=== PATIENT | female | born 1975 | race Caucasian/White ===

== ENCOUNTER 2019-11-29 08:31 | Outpatient (CLI) | payer OTHER, SELFPAY ==
--- NOTE | ~2019-11-29 | MM_ITS ---
EXAMINATION: MM screening angela BI w ro HISTORY: Screening mammogram TECHNIQUE: Craniocaudal and mediolateral oblique 3-D tomosynthesis images were obtained and synthetic 2-D images were generated. CAD analysis was submitted and interpreted. COMPARISON: No prior mammogram is available for comparison at this institution. BREAST PARENCHYMAL COMPOSITION: There are scattered areas of fibroglandular density. FINDINGS: There is no evidence of suspicious mass, calcification, or architectural distortion to sugg est malignancy in either breast. IMPRESSION: 1. No mammographic evidence of malignancy. 2. Recommend routine screening mammography in one year. BI-RADS Category 1: Negative Reviewed, dictated and finalized at location A.
== END 2019-11-29 08:32 | disposition home or self-care (01) ==
LOC: ANHIMG 08:33
PROVIDERS: PCP Internal Medicine; Visit Provider Internal Medicine
DX: Z12.31 Encounter for screening mammogram for malignant neoplasm of breast (principal)
CPT/HCPCS: 77063; 77067

== ENCOUNTER 2020-08-22 08:23 | Outpatient (CLI) | payer OTHER, SELFPAY ==
--- NOTE | ~2020-08-22 | MR_ITS ---
EXAMINATION: MR cervical spine wo con DATE: 08/22/2020 09:52 INDICATION: Cervical radiculopathy. TECHNIQUE: Magnetic resonance imaging (MRI) of the cervical spine was performed without intravenous c ontrast. Sequences included sagittal T2-weighted FSE, sagittal STIR FSE, sagittal T1-weighted FSE, ax ial MERGE, and axial T2-weighted FSE. COMPARISON: CT cervical spine 03/15/2004 FINDINGS: There is kyphosis of cervical spine. Vertebral body heights are normal. There is mildly dec reased disc height at C5-C6 and C6-C7. The spinal cord signal intensity is normal. The following disc levels are specifically discussed: C2-C3: The disc does not extend beyond the endplate margin. There is no uncovertebral joint osteoarth ritis. There is mild bilateral facet joint osteoarthritis. There is no neural foraminal stenosis. The re is no central canal stenosis. C3-C4: The disc does not extend beyond the endplate margin. There is mild bilateral uncovertebral tere nt osteoarthritis. There is mild bilateral facet joint osteoarthritis. There is no neural foraminal s tenosis. There is no central canal stenosis. C4-C5: The disc does not extend beyond the endplate margin. There is no uncovertebral joint osteoarth ritis. There is no facet joint osteoarthritis. There is no neural foraminal stenosis. There is no charo tral canal stenosis. C5-C6: The disc is bulging. There is mild left uncovertebral joint osteoarthritis. There is mild left facet joint osteoarthritis. There is no neural foraminal stenosis. There is no central canal stenosi s. C6-C7: The disc is bulging with superimposed central extrusion. There is mild bilateral uncovertebral joint osteoarthritis. There is no facet joint osteoarthritis. There is mild right neural foraminal s tenosis. There is mild central canal stenosis. C7-T1: The disc does not extend beyond the endplate margin. There is no uncovertebral joint osteoarth ritis. There is mild bilateral facet joint osteoarthritis. There is no neural foraminal stenosis. The re is no central canal stenosis. IMPRESSION: 1. Mild cervical spondylosis. Reviewed, dictated and finalized at location A. [employer]
== END 2020-08-22 08:24 | disposition home or self-care (01) ==
LOC: ANHIMG 08:37
PROVIDERS: PCP Internal Medicine; Visit Provider Internal Medicine
DX: M47.22 Other spondylosis with radiculopathy, cervical region (principal)
CPT/HCPCS: 72141

== ENCOUNTER → 2021-05-15 09:49 | Outpatient (CLI) | payer OTHER, SELFPAY ==
[2021-05-16 18:23] LABS: SARS-CoV-2 RNA PCR Negative
== END ==
PROVIDERS: PCP Internal Medicine; Visit Provider Internal Medicine
DX: J06.9 Acute upper respiratory infection, unspecified (principal); Z20.822 Contact with and (suspected) exposure to COVID-19
CPT/HCPCS: C9803; U0003; U0005

== ENCOUNTER → 2021-07-14 14:09 | Outpatient (CLI) | payer OTHER, SELFPAY ==
--- NOTE | ~2021-07-14 | MR_ITS ---
EXAMINATION: MR shoulder RT wo con DATE: 07/14/2021 14:46 INDICATION: Impingement syndrome of right shoulder. TECHNIQUE: Magnetic resonance imaging (MRI) of the right shoulder was performed without intravenous c ontrast. Sequences included axial PD-weighted FS FSE, coronal oblique PD-weighted FS FSE and T2-weigh dean FS FSE, and sagittal oblique T2-weighted FS FSE and T1-weighted FSE. COMPARISON: Right shoulder radiographs 04/09/2021 FINDINGS: Coracoacromial arch: The acromion undersurface is curved in morphology (type II). There is mild acromioclavicular joint os teoarthritis. There is a physiologic volume of fluid in subacromial/subdeltoid bursa. Rotator cuff: There is mild supraspinatus and infraspinatus tendinopathy. Teres minor tendon is normal. Subscapular is tendon is normal. There is no asymmetric fatty atrophy of the rotator cuff muscle bellies. Biceps tendon and glenoid labrum: Biceps tendon is in bicipital groove. Intra-articular biceps tendon is normal. The glenoid labrum is intact. Fluid: There is a small glenohumeral joint effusion. There is a 7 mm loose body in the subscapular recess. Bones/cartilage: The humeral head cartilage is normal. The glenoid cartilage is normal. There is a small subchondral c yst of the glenoid posteriorly. IMPRESSION: 1. Mild rotator cuff tendinopathy. No tear. 2. Small glenohumeral joint effusion with loose body. 3. Mild acromioclavicular joint osteoarthritis. Reviewed, dictated and finalized at location A.
== END ==
PROVIDERS: PCP Internal Medicine; Visit Provider Orthopaedic Surgery
DX: M19.011 Primary osteoarthritis, right shoulder (principal); M25.411 Effusion, right shoulder; M24.011 Loose body in right shoulder
CPT/HCPCS: 73221

== ENCOUNTER 2021-10-10 01:32 | Day surgery (SDC) | payer OTHER, SELFPAY ==
[2021-10-06 14:24] VITALS: BMI 43.2
--- NOTE | 2021-10-06 14:37 | PC.NURSE ---
Report to the Outpatient Waiting Room, entrance under the green pavilion located off [facility], at time 0600 on date 10/10/21. OR Time: 0730. - You will be asked a series of questions to screen for COVID 19 for your protection. - A mask is required within the hospital. - No visitors are allowed at this time. Preoperative COVID Testing Requirements: TO BRING COPY OF CARD No COVID Test needed if: (proof is required; if not received patient will have Rapid Test prior to entry) - Patient has received COVID Vaccine at least 14 days prior to procedure date or - Patient has positive COVID test result within last 90 days of surgery date. COVID Test needed if above criteria is not met Patients may have clear liquids (water, carbonated beverages, clear teas, apple juice) until 3 hours prior to surgery with a maximum of 20 ounces. - No food from midnight until time of surgery Take the following medications with a SIP of water the morning of surgery: TOPAMAX Medications to discontinue per physician: JORGE Date to take last dose: 7 DAYS PRIOR TO SURGERY (PER ) Please no make-up, nail urdu, hairspray, perfume, deodorant, or body powder the day of surgery. No jewelry (including any body piercings) or valuables the day of surgery, leave them at home. Please take a shower or bath the night before, or the morning of, surgery with an antibacterial soap. Wear comfortable, loose fitting clothing. - Jewelry must be removed prior to entering the operating room. Rings and piercings that are not removed may be cut off. - The hospital will not accept responsibility for valuables. - Please leave all valuables, including medications, at home the day of surgery. If you are going home after surgery, a licensed p d driver must drive you home. - NO public transportation without another adult. - We recommend that an adult stay with you for 24 hours following discharge. - We also recommend that you do not drive, make important decision, drink alcoholic beverages, or take any drugs that were not prescribed by your health care provider for at least 24 hours after your discharge time. Follow any additional instructions given to you from your surgeon. Telephone instructions given to ROMAIN BERUMEN and asked if any additional questions and then verbalized understanding. Patient advised to call surgeon office or pre surgery nurse liaison [phone] if any additional questions.
--- NOTE | 2021-10-09 12:39 | WPDANESEPPF ---
Anes - Initial Pre Proc Eval Procedure: Operation Date: 10/10/21 07:30 Proposed Procedures p Right Shoulder Arthroscopy, Subacromial Decompression, Possible Loose Body Removal - Hugo Espitia MD Date/Time: 10/09/21 12:39 Surgeon: Hugo Espitia MD Pre Op Diagnosis: tendonitis rt rot cuff, loose body Patient Data Age: 46 Gender: F Height: 1.65 m Weight: 117.93 kg Allergies Allergy/AdvReac Type Severity Reaction Status Date / Time codeine Allergy Mild Hives Verified 10/10/21 06:20 Sulfa (Sulfonamide Allergy Mild Hives Verified 10/10/21 06:20 Antibiotics) Penicillins Allergy Unknown Hives Verified 10/10/21 06:20 strawberry Allergy Unknown Hives Verified 10/10/21 06:20 sulfanilamide Allergy Unknown Hives Verified 10/10/21 06:20 Home Medications Medication Instructions Recorded Confirmed Type cholecalciferol (vitamin D3) 1,250 50,000 unit PO WEEKLY #10 cap 08/06/21 10/10/21 Rx mcg (50,000 unit) capsule topiramate 25 mg tablet 25 mg PO BID #180 tablet 08/06/21 10/10/21 Rx naproxen sodium [Aleve] 220 mg PO Q12H PRN 10/06/21 10/10/21 History Patient hx anesthesia problems: none Family hx anesthesia problems: none Results Review: All pre-operative results and documents have been reviewed as part of the pre-operative evaluation. [facility] Past Medical History Medical History Cervical radiculopathy Chronic migraine COVID-19 vaccine series completed Establishing care with new doctor, encounter for Exercise counseling Morbid obesity with BMI of 40.0-44.9, adult Muscle spasm Otitis media Routine adult health maintenance Screening mammogram, encounter for Vaccine counseling Weight loss advised Surgical History Surgical History History of carpal tunnel surgery (~2000) History of cholecystectomy (~2008) History of eye surgery (~1985) History of shoulder surgery (~2011) Left shoulder surgery Family History Family History Sibling Cerebrovascular accident Asthma Patient's brother is in good health Grandparent Cerebrovascular accident Family history of coronary artery disease Father Hypertension Cerebrovascular accident Mother Patient's mother is in good health Other Family history of elevated blood lipids Social History Social History Smoking status: Never smoker Second hand tobacco smoke exposure: No Alcohol intake: never Substance use: never Substance use type: does not use Living arrangements: with family Spiritual care concerns: No Anes - Eval Final PreProcedure Day of Procedure 10/09/21 12:39 Patient weight: morbidly obese Heart: regular rate and rhythm Lungs: clear to auscultation and normal air movement Airway: Mallampati scale class II Neurological: alert and oriented Last oral intake: >/= 8 hours ASA classification: III Emergent: no Anesthetic plan: proceed Anesthesia type and monitoring: general ETT Results Review: All pre-operative results and documents have been reviewed as part of the pre-operative evaluation. Informed Consent: The patient's anesthetic plan and its attendant risks and benefits were discussed with the patient/family/POA. Questions were solicited and answers provided to the satisfaction of the patient/family/POA.
--- NOTE | 2021-10-09 12:42 | WPDANESPNB ---
Anes - Peripheral Nerve Block Date/Time: 10/09/21 12:42 I have discussed with the patient/family/POA the placement of a peripheral nerve block for post-operative pain management, including associated risks, benefits, complications, and side effects. Alternative methods of post-operative analgesia were detailed. Questions were solicited and answers provided to the satisfaction of the patient/family/POA. Time-Out: A pre-procedural Time-Out was completed immediately before starting the procedure and confirmed: Patient Identification, Site, Procedure, Patient Position and the Availability of Requisite Equipment. Clinical Indications: Acute post-operative pain management requested by the operative surgeon. Nerve Block Insertion Note Anes-nerve block: supraclavicular right Patient position: supine Skin prep: chlorhexidine Needle: 22 gauge, stimulating, insulated echogenic needle. Needle length: 80 mm Technique: ultrasound (in plane) Injectate: bupivacaine 0.5% with epi 5 mcg/ml (20cc) Observations: tolerated well Complications: none Procedure start time:: 725 Procedure end time:: 730
[2021-10-10] VITALS (9 sets, daily range): BP systolic 100–130; BP diastolic 48–84; PULSE 51–84; RESP 16–20; TEMP 36.1–36.5; O2SAT 98–100; BMI 44.6
[2021-10-10] MEDS: LACTATED RINGERS 1,000 ML 30 ML IV CONT (07:13)
[2021-10-10] MEDS: KETOROLAC 15 MG/ML VIAL (*BKC) IV PUSH (07:13)
[2021-10-10] MEDS: ACETAMINOPHEN 500 MG TABLET 1000 MG PO (07:13)
--- NOTE | 2021-10-10 07:24 | WPDHPUPDATE1 ---
History and Physical Update Update Date/Time: 10/10/21 07:24 History and Physical has been reviewed, including an updated exam of the patient. There are NO changes in the patient's condition. Risks, benefits, and alternatives have been discussed and questions answered. Patient agrees to proceed with procedure.
[2021-10-10] MEDS: ceFAZolin 3 GM/D5W 100 ML 100 ML IVPB (07:43)
[2021-10-10] MEDS: ONDANSETRON INJ 4 MG/2 ML VIAL IV PUSH (09:27)
--- NOTE | 2021-10-10 10:09 | W.PM.PROC2 ---
Procedure Note - Detailed Date of Procedure 10/10/21 Pre-op Diagnosis tendonitis rt rot cuff, loose body Post-op Diagnosis other (1. Glenoid chondral defect 2. Partial thickness rotator cuff tear (articular) 3. Impingement syndrome) Procedure Performed 1. Glenoid microfracture (extensive debridement) 2. Rotator cuff articular tear debridement 3. Subacromial decompression Surgeon Hugo Espitia MD Post Manager Trisha West PA-C Anesthesia general Description of Procedure Patient was given an interscalene block in the holding area. Preoperative antibiotics were given. The patient was brought to the operating room. Careful positioning in the beach chair was accomplished. The head neck were carefully positioned. A small bump was placed under the left shoulder. The shoulder was examined. The shoulder was prepped and draped in the usual sterile fashion. Standard posterior and anterior arthroscopic portals were established. The shoulder was inspected. Extensive cartilage wear at the posterior aspect of the glenoid noted. Exposed bone through approximately 1/4 to 1/3 of the posterior glenoid face. This was treated with gentle debridement followed by microfracture using a microfracture awl. Good bleeding bone and bone marrow was confirmed. The subscapular recess was carefully assessed and no loose body was identified. Biceps tendon was intact. There was minimal chondromalacia on the humerus. The anterior supraspinatus showed low-grade 10% undersurface tearing. This was treated with gentle debridement. Attention was turned to the subacromial space. A complete bursectomy was performed. An accessory lateral portal was created. The bursal side rotator cuff showed no tearing. The acromion was clearly visualized. The coracoacromial ligament was released. Careful acromioplasty was performed utilizing views from both lateral and posterior. Loose bone fragments were carefully irrigated from the joint. The arthroscopic instruments were removed. The wounds were closed with interrupted 3-0 Monocryl suture followed by Steri-Strips. A sterile dressing was applied with a sling. The patient was extubated and brought to the recovery room in stable condition. There were no complications. Physician assistant professor of marine biology, Trisha Herring PA-C, required for surgery; including patient positioning, draping, arthroscopic camera operation, maintaining instrument position, wound closure, and dressing and sling placement. Estimated Blood Loss 5 Drains No Packing No Pathology none sent Complications No immediate complications Condition stable Disposition same day
== END 2021-10-10 11:45 | disposition home or self-care (01) ==
PROVIDERS: PCP Internal Medicine; Visit Provider Orthopaedic Surgery
PROC: (CPT 29805; principal; 2021-10-10 07:30)
DX: M25.811 Other specified joint disorders, right shoulder (principal); M75.41 Impingement syndrome of right shoulder; M24.011 Loose body in right shoulder; M75.101 Unspecified rotator cuff tear or rupture of right shoulder, not specified as traumatic; M94.211 Chondromalacia, right shoulder; G89.18 Other acute postprocedural pain; M54.12 Radiculopathy, cervical region; E66.01 Morbid (severe) obesity due to excess calories; Z68.41 Body mass index [BMI] 40.0-44.9, adult
CPT/HCPCS: 29823; 64415; A4565; A9270; J0330; J0690; J1100; J1885; J2250; J2370; J2405; J2704; J3010; J7120

== ENCOUNTER 2021-12-03 00:26 | Day surgery (SDC) | payer OTHER, SELFPAY ==
[2021-10-24 14:00] VITALS: BMI 43.2
[2021-11-24 14:27] VITALS: BMI 44.1
[2021-12-03 08:36] VITALS: BP 121/85; PULSE 84; RESP 18; TEMP 36.4; O2SAT 100
[2021-12-03] MEDS: LACTATED RINGERS 1,000 ML 150 ML IV CONT (08:44)
--- NOTE | 2021-12-03 08:50 | WPDANESEPPF ---
Anes - Initial Pre Proc Eval Procedure: Operation Date: 12/03/21 09:30 Proposed Procedures p Screening Colonoscopy - Baltazar Coronado MD Date/Time: 12/03/21 08:50 Surgeon: Baltazar Coronado MD Pre Op Diagnosis: neoplasm screening Patient Data Age: 46 Gender: F Height: 1.65 m Weight: 123.9 kg Last Vital Signs Temp 36.4 C L 12/03/21 08:36 Pulse 84 12/03/21 08:36 Resp 18 12/03/21 08:36 BP 121/85 12/03/21 08:36 Pulse Ox 100 12/03/21 08:36 Allergies Allergy/AdvReac Type Severity Reaction Status Date / Time codeine Allergy Mild Hives Verified 12/03/21 08:35 Sulfa (Sulfonamide Allergy Mild Hives Verified 12/03/21 08:35 Antibiotics) Penicillins Allergy Unknown Hives Verified 12/03/21 08:35 strawberry Allergy Unknown Hives Verified 12/03/21 08:35 sulfanilamide Allergy Unknown Hives Verified 12/03/21 08:35 Home Medications Medication Instructions Recorded Confirmed Type topiramate 25 mg tablet 25 mg PO BID #180 tablet 08/06/21 11/24/21 Rx naproxen sodium [Aleve] 220 mg PO Q12H PRN 10/06/21 11/24/21 History Patient hx anesthesia problems: none Family hx anesthesia problems: none Results Review: All pre-operative results and documents have been reviewed as part of the pre-operative evaluation. [facility] Past Medical History Medical History Cervical radiculopathy Chronic migraine COVID-19 vaccine series completed Establishing care with new doctor, encounter for Exercise counseling Morbid obesity with BMI of 40.0-44.9, adult Muscle spasm Otitis media Routine adult health maintenance Screening mammogram, encounter for Vaccine counseling Weight loss advised Surgical History Surgical History History of carpal tunnel surgery (~2000) History of cholecystectomy (~2008) History of eye surgery (~1985) History of shoulder surgery (~2011) Left shoulder surgery Family History Family History Sibling Cerebrovascular accident Asthma Patient's brother is in good health Grandparent Cerebrovascular accident Family history of coronary artery disease Father Hypertension Cerebrovascular accident Mother Patient's mother is in good health Other Family history of elevated blood lipids Social History Social History Smoking status: Never smoker Second hand tobacco smoke exposure: No Alcohol intake: never Substance use: never Substance use type: does not use Living arrangements: with family Spiritual care concerns: No Anes - Eval Final PreProcedure Day of Procedure 12/03/21 08:50 Patient weight: morbidly obese Heart: regular rate and rhythm Lungs: clear to auscultation Airway: Mallampati scale class II Neurological: alert and oriented Last oral intake: >/= 8 hours ASA classification: III Emergent: no Anesthetic plan: proceed Anesthesia type and monitoring: general GIVS and standard monitoring Results Review: All pre-operative results and documents have been reviewed as part of the pre-operative evaluation. Informed Consent: The patient's anesthetic plan and its attendant risks and benefits were discussed with the patient/family/POA. Questions were solicited and answers provided to the satisfaction of the patient/family/POA.
--- NOTE | 2021-12-03 09:11 | PM.HPGS ---
History of Present Illness History of Present Illness Consent: Risks, benefits, and alternatives have been discussed and questions answered. Patient agrees to proceed with procedure. Chief complaint: neoplasm screening Narrative: Veronica Guardado is a 46 year old female here for screening colonoscopy, had one in 2006 because stomach issues Review of Systems Constitutional: Constitutional: Denies headache(s) and Denies weakness Eyes: Eyes: Denies blurry vision ENT: Reports Normal hearing present, Denies headache(s) and Denies neck pain Cardiovascular: Cardiovascular: Denies chest pain and Denies dyspnea Respiratory: Respiratory: Denies dyspnea Gastrointestinal: Gastrointestinal: Reports no additional gastrointestinal complaints Genitourinary: Genitourinary: Denies dysuria Musculoskeletal: Musculoskeletal: Denies neck pain Integumentary/Breasts: Skin/Breast: Denies dry skin Neurologic: Reports Normal hearing present, Denies headache(s) and Denies weakness Psychiatric: Psychiatric: Denies anxiety Endocrine: Endocrine: Denies change in body appearance Hematologic/Lymphatic: Hematologic/Lymphatic: Denies easy bleeding Allergic/Immunologic: Allergic/Immunologic: Denies urticaria PMFSH Past Medical History Medical History (Updated 12/03/21 @ 09:12 by Baltazar Coronado MD) Cervical radiculopathy Chronic migraine Colon cancer screening COVID-19 vaccine series completed Establishing care with new doctor, encounter for Exercise counseling Morbid obesity with BMI of 40.0-44.9, adult Muscle spasm Otitis media Routine adult health maintenance Screening mammogram, encounter for Vaccine counseling Weight loss advised Surgical History Surgical History History of carpal tunnel surgery (~2000) History of cholecystectomy (~2008) History of eye surgery (~1985) History of shoulder surgery (~2011) Left shoulder surgery Family History Family History Sibling Cerebrovascular accident Asthma Patient's brother is in good health Grandparent Cerebrovascular accident Family history of coronary artery disease Father Hypertension Cerebrovascular accident Mother Patient's mother is in good health Other Family history of elevated blood lipids Social History Social History Smoking status: Never smoker Second hand tobacco smoke exposure: No Alcohol intake: never Substance use: never Substance use type: does not use Living arrangements: with family Spiritual care concerns: No Meds Home Medications and Allergies Home Medications Medication Instructions Recorded Confirmed Type topiramate 25 mg tablet 25 mg PO BID #180 tablet 08/06/21 11/24/21 Rx naproxen sodium [Aleve] 220 mg PO Q12H PRN 10/06/21 11/24/21 History Allergies Allergy/AdvReac Type Severity Reaction Status Date / Time codeine Allergy Mild Hives Verified 12/03/21 08:35 Sulfa (Sulfonamide Allergy Mild Hives Verified 12/03/21 08:35 Antibiotics) Penicillins Allergy Unknown Hives Verified 12/03/21 08:35 strawberry Allergy Unknown Hives Verified 12/03/21 08:35 sulfanilamide Allergy Unknown Hives Verified 12/03/21 08:35 Vital Signs Vital Signs - 24 hr 12/03/21 08:36 Temperature 97.5 F L Pulse Rate 84 Respiratory Rate 18 Blood Pressure 121/85 Pulse Oximetry 100 Exam Const: General: comfortable and no acute distress HENMT: General nose exam: Normal nares present Eyes: General: appearance normal, both eyes and all related structures Neck: Neck: no JVD Resp: Auscultation: clear to auscultation bilaterally Cardio: Rate: regular rate Rhythm: regular rhythm GI: Inspection: non-distended GI Palp: Yes Soft to palpation Skin: General skin exam: normal color Neuro: General: gait normal Speech: normal speech Extrem:
[2021-12-03 09:37] VITALS: BP 121/50; PULSE 72; RESP 20; O2SAT 95
[2021-12-03 09:47] VITALS: BP 106/55; PULSE 81; RESP 22; O2SAT 95
[2021-12-03 09:57] VITALS: BP 110/57; PULSE 66; RESP 22; O2SAT 95
== END 2021-12-03 10:14 | disposition home or self-care (01) ==
PROVIDERS: PCP Internal Medicine; Visit Provider Internal Medicine Gastroenterology
PROC: 0DJD8ZZ Inspection of Lower Intestinal Tract, Via Natural or Artificial Opening Endoscopic (ICD-10-PCS; CPT 45378; principal; 2021-12-03 09:30)
DX: Z12.11 Encounter for screening for malignant neoplasm of colon (principal); K57.30 Diverticulosis of large intestine without perforation or abscess without bleeding; K64.8 Other hemorrhoids; E66.01 Morbid (severe) obesity due to excess calories; Z68.42 Body mass index [BMI] 45.0-49.9, adult
CPT/HCPCS: 45378; J2001; J2704; J7120

== ENCOUNTER → 2022-04-08 14:58 | Outpatient (CLI) | payer OTHER, SELFPAY ==
--- NOTE | ~2022-04-08 | MR_ITS ---
EXAMINATION: MR lumbar spine wo con DATE: 04/08/2022 16:10 INDICATION: Chronic low back pain. No history of trauma. TECHNIQUE: Magnetic resonance imaging (MRI) of the lumbar spine was performed without intravenous con trast. Sequences included sagittal T2-weighted FSE, sagittal T2-weighted FS FSE, sagittal T1-weighted FSE, and axial T2-weighted FSE. COMPARISON: None FINDINGS: The last fully formed and hydrated disc is designated L5-S1. Hemangiomas at L1 and S1. The marrow signal is benign and homogenous. Conus terminates at L1. Disc dehydration at L4-5 and L5-S1. T he following disc levels are specifically discussed: T12-L1: The disc does not extend beyond the endplate margin. There is mild facet joint osteoarthritis . There is no neural foraminal stenosis. There is no central canal stenosis. L1-L2: The disc does not extend beyond the endplate margin. There is mild facet joint osteoarthritis. There is no neural foraminal stenosis. There is no central canal stenosis. L2-L3: Mild diffuse bulge. There is mild facet joint osteoarthritis. There is no neural foraminal benedicto nosis. There is no central canal stenosis. L3-L4: The disc does not extend beyond the endplate margin. There is mild facet joint osteoarthritis. There is no neural foraminal stenosis. There is no central canal stenosis. L4-L5: The disc does not extend beyond the endplate margin. There is mild facet joint osteoarthritis. There is no neural foraminal stenosis. There is no central canal stenosis. L5-S1: The disc does not extend beyond the endplate margin. There is mild facet joint osteoarthritis. There is no neural foraminal stenosis. There is no central canal stenosis. IMPRESSION: 1. Mild degenerative disc change at L4-5 and L5-S1. 2. Mild multilevel facet arthropathy. Reviewed, dictated and finalized at location K.
--- NOTE | ~2022-04-08 | MR_ITS ---
EXAMINATION: MR cervical spine wo con DATE: 04/08/2022 15:54 INDICATION: Neck pain. TECHNIQUE: Magnetic resonance imaging (MRI) of the cervical spine was performed without intravenous c ontrast. Sequences included sagittal T2-weighted FSE, sagittal T2-weighted FS FSE, sagittal T1-weight ed FSE, axial MERGE, and axial T2-weighted FSE. COMPARISON: Cervical spine MRI 08/22/2020 FINDINGS: There is kyphosis of cervical spine. There is 6 degrees dextrocurvature of cervicothoracic spine. Vertebral body heights are normal. There is mildly decreased disc height at C5-C6 and C6-C7. T he spinal cord signal intensity is normal. The following disc levels are specifically discussed: C2-C3: The disc does not extend beyond the endplate margin. There is no uncovertebral joint osteoarth ritis. There is no facet joint osteoarthritis. There is no neural foraminal stenosis. There is no charo tral canal stenosis. C3-C4: The disc does not extend beyond the endplate margin. There is mild bilateral uncovertebral tere nt osteoarthritis. There is mild bilateral facet joint osteoarthritis. There is no neural foraminal s tenosis. There is no central canal stenosis. C4-C5: The disc does not extend beyond the endplate margin. There is no uncovertebral joint osteoarth ritis. There is no facet joint osteoarthritis. There is no neural foraminal stenosis. There is no charo tral canal stenosis. C5-C6: There is a left central extrusion. There is mild bilateral uncovertebral joint osteoarthritis. There is no facet joint osteoarthritis. There is mild left neural foraminal stenosis. There is mild central canal stenosis. C6-C7: The disc is bulging. There is mild bilateral uncovertebral joint osteoarthritis. There is mild right facet joint osteoarthritis. There is mild right neural foraminal stenosis. There is mild centr al canal stenosis. C7-T1: The disc does not extend beyond the endplate margin. There is no uncovertebral joint osteoarth ritis. There is mild bilateral facet joint osteoarthritis. There is no neural foraminal stenosis. The re is no central canal stenosis. IMPRESSION: 1. Mild cervical spondylosis, stable from 08/22/2020. Reviewed, dictated and finalized at location A.
== END ==
PROVIDERS: PCP Internal Medicine
DX: M51.37 Other intervertebral disc degeneration, lumbosacral region (principal); M51.36 Other intervertebral disc degeneration, lumbar region; M47.892 Other spondylosis, cervical region
CPT/HCPCS: 72141; 72148

== ENCOUNTER 2025-06-01 09:43 | Emergency (ER) | payer OTHER, SELFPAY ==
--- NOTE | ~2025-06-01 | XR_ITS ---
EXAMINATION: XR knee RT 3V, 06/01/2025 10:28 CDT HISTORY: posterior R knee pain 2 wks after fall COMPARISON: No comparisons available. Findings: No acute fracture or malalignment. No significant degenerative changes. Soft tissues unremarkable. Impression: No acute fracture or malalignment. Reviewed, dictated and finalized at location A. Impression: No acute fracture or malalignment.
[2025-06-01 10:00] VITALS: BP 132/83; PULSE 76; RESP 18; TEMP 36.6; O2SAT 98
--- NOTE | 2025-06-01 10:39 | ED.FALL ---
HPI - Fall General Chief Complaint: Fall Stated Complaint: FALL Time Seen by Provider: 06/01/25 10:20 Source: patient Mode of arrival: ambulatory Limitations: no limitations History of Present Illness HPI Narrative: 50 yo F presents with pain to posterior R knee for 2 wks. Slipped on ice in freezer at work and fell forward onto both knees. L knee pain resolved. Continues to have pain to R knee, unable to completely extend, pain worse when ambulatory. Taking naproxen for pain. Was recommended that patient go to work pain, facility for follow-up after fall. Patient felt that this location was to for for her. Patient went into work today and was able to work due to right knee pain. 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 All systems reviewed and negative except as noted above. Related Data Home Medications ?Medication ?Instructions ?Recorded ?Confirmed ?Last Taken ?Type naproxen sodium 220 mg tablet 220 mg PO Q12H PRN Pain 10/06/21 05/06/22 12/02/21 History (Aleve) Allergies Allergy/AdvReac Type Severity Reaction Status Date / Time codeine Allergy Mild Hives Verified 06/01/25 10:13 Sulfa (Sulfonamide Allergy Mild Hives Verified 06/01/25 10:13 Antibiotics) Penicillins Allergy Unknown Hives Verified 06/01/25 10:13 strawberry Allergy Unknown Hives Verified 06/01/25 10:13 sulfanilamide Allergy Unknown Hives Verified 06/01/25 10:13 PMF Past Medical History Medical History Cervical radiculopathy Chronic migraine Colon cancer screening COVID-19 vaccine series completed Establishing care with new doctor, encounter for Exercise counseling Morbid obesity with BMI of 40.0-44.9, adult Muscle spasm Otitis media Routine adult health maintenance Screening mammogram, encounter for Vaccine counseling Weight loss advised Surgical History Surgical History History of carpal tunnel surgery (~2000) History of cholecystectomy (~2008) History of eye surgery (~1985) History of shoulder surgery (~2011) Left shoulder surgery Family History Family History Sibling Cerebrovascular accident Asthma Patient's brother is in good health Grandparent Cerebrovascular accident Family history of coronary artery disease Father Hypertension Cerebrovascular accident Mother Patient's mother is in good health Other Family history of elevated blood lipids Social History Social History Smoking status: Never smoker Second hand tobacco smoke exposure: No Alcohol intake: never Substance use: never Substance use type: does not use Living arrangements: with family Spiritual care concerns: No Comments At time of signature, agree with nursing past medical, surgical, social and family history. There is no relevant family history pertinent to the presenting complaint. Exam Narrative: GENERAL: This is a well-nourished, well-developed patient, in no apparent distress. HEAD: normocephalic, atraumatic. EYES: PERRL. Sclera clear/white. Vision is grossly intact. EARS: External ears normal NOSE: External nose normal NECK: Neck supple, non-tender without lymphadenopathy, masses or thyromegaly. CARDIOVASCULAR: Regular rate and rhythm without murmurs, gallops, or rubs. RESPIRATORY: Clear to auscultation. Breath sounds equal bilaterally. No wheezes, rales, or rhonchi. SKIN: warm, Dry, intact with no suspicious lesions or rash, good texture and turgor. NEURO: awake, alert, and oriented to person, place and time. There were no obvious focal neurologic abnormalities. EXTREMITIES: Tenderness to posterior aspect of right knee. Difficult to assess swelling due to body habitus. Negative anterior and posterior drawer testing. Normal range of motion. Course Course Level of Care: Express Care Visit Vital Signs Vital signs: Vital Signs Temperature 36.6 C 06/01/25 10:00 Pulse Rate 76 06/01/25 10:00 Respiratory Rate 18 06/01/25 10:00 Blood Pressure 132/83 06/01/25 10:00 Pulse Oximetry 98 06/01/25 10:00 Oxygen Delivery Room Air 06/01/25 10:00 Temperature 36.6 C 06/01/25 10:00 Pulse Rate 76 06/01/25 10:00 Respiratory Rate 18 06/01/25 10:00 Blood Pressure 132/83 06/01/25 10:00 Pulse Oximetry 98 06/01/25 10:00 Oxygen Delivery Room Air 06/01/25 10:00 Reviewed MDM - Fall MDM Narrative Medical decision making narrative: x-ray of patient's right knee was normal. Discussed results with patient. Patient placed in Ad[place] wrap. Recommend follow-up with her primary care physician for further evaluation of pain. Differential Diagnosis Differential diagnosis: Likely other ( Right knee strain, right knee sprain, right knee fracture) Imaging Data My impression: agree with radiologist Radiologist's impression: EXAMINATION: XR knee RT 3V, 06/01/2025 10:28 CDT HISTORY: posterior R knee pain 2 wks after fall COMPARISON: No comparisons available. Findings: No acute fracture or malalignment. No significant degenerative changes. Soft tissues unremarkable. Impression: No acute fracture or malalignment. Discharge Plan Discharge Clinical Impression: Strain of knee and leg, right Patient Disposition: Home Condition: Stable Instructions: Knee Pain (ED) Additional Instructions: The x-ray of your right knee was normal. Take ibuprofen every 6-8 hours as needed for pain. Elevate when at rest. Apply ice as needed for pain. Avoid activities that increase pain to right knee. If pain and swelling is not improving follow-up your primary care physician for further evaluation. Patient Language: Tajik Prescriptions: No Action naproxen sodium [Aleve] 220 mg Tablet 220 mg PO Q12H PRN (Reason: Pain) Follow-up/Referrals: Jeet Bloom DO [Primary Care Provider, Internal Medicine] Stand Alone Forms: Work/School Release IP Time of Disposition: 11:04
== END 2025-06-01 11:10 | disposition home or self-care (01) ==
PROVIDERS: Emergency Provider Nurse Practitioner Family; PCP Internal Medicine
DX: S86.911A Strain of unspecified muscle(s) and tendon(s) at lower leg level, right leg, initial encounter (principal); W00.9XXA Unspecified fall due to ice and snow, initial encounter; Y99.0 Civilian activity done for income or pay; E66.01 Morbid (severe) obesity due to excess calories; Z68.35 Body mass index [BMI] 35.0-35.9, adult
CPT/HCPCS: 73562; 99213; G0463